=== PATIENT | female | born 1935 | race Caucasian/White ===

== ENCOUNTER → 2017-10-31 | Outpatient (CLI) | payer OTHER, MEDICAID | LOC: CIMAGING 10:13 | PROVIDERS: ATTEND Family Medicine | DX: M51.37 Other intervertebral disc degeneration, lumbosacral region (principal); M47.896 Other spondylosis, lumbar region | CPT/HCPCS: 72100-PO ==

== ENCOUNTER → 2018-01-27 | Outpatient (CLI) | payer OTHER, MEDICAID | LOC: CIMAGING 11:08 | PROVIDERS: ATTEND Family Medicine | DX: M25.842 Other specified joint disorders, left hand (principal) | CPT/HCPCS: 73130-PO ==

== ENCOUNTER → 2018-10-24 | Outpatient (CLI) | payer OTHER, MEDICAID | LOC: CIMAGING 16:49 | PROVIDERS: ATTEND Family Medicine | DX: I51.7 Cardiomegaly (principal); J40 Bronchitis, not specified as acute or chronic | CPT/HCPCS: 71046-PO ==